=== PATIENT | female | born 1945 | race Caucasian/White ===

== ENCOUNTER 2024-03-21 13:52 | Emergency (ER) | payer OTHER ==
[2024-03-21 13:59] VITALS: BP 124/72; PULSE 73; RESP 18; TEMP 98.2; BMI 29.2
[2024-03-21] MEDS: ONDANSETRON 4 MG/2 ML VIAL IVPUSH ONE (14:09)
[2024-03-21] MEDS: SODIUM CHLORIDE 0.9% 500 ML INFUS.BAG IV ONE (14:09)
[2024-03-21] MEDS: MECLIZINE HCL 25 MG TABLET (FP) PO ONE (14:21)
[2024-03-21 14:56] LABS: HEMATOCRIT 33.1 % (32.4-45.2); HEMOGLOBIN 10.6 G/dL (10.7-15.3); MCH 27.4 pg (25.7-33.7); MCHC 31.9 g/dl (32.0-36.0); MEAN CELL VOLUME 85.9 fl (80-96); MEAN PLT VOLUME 9.9 fl (7.5-11.1); PLATELET COUNT 252.4 10^3/uL (134-434); RBC 3.85 10^6/uL (3.60-5.2); RDW 17.6 % (11.6-15.6); WHITE BLOOD COUNT 8.6 10^3/uL (4.0-10.8)
[2024-03-21 14:59] LABS: PLATELET ESTIMATE ADEQUATE
[2024-03-21 15:05] LABS: ALBUMIN 4.5 g/dl (3.4-5.0); CREATININE 0.9 mg/dl (0.6-1.3); POTASSIUM 3.4 mmol/L (3.5-5.1); TOT PROT 7.4 g/dl (6.4-8.2)
== END 2024-03-21 16:31 | disposition home or self-care (01) ==
LOC: FER 13:52
PROC: 3E033GC Introduction of Other Therapeutic Substance into Peripheral Vein, Percutaneous Approach (ICD-10-PCS; principal; 2024-03-21)
DX: R42 Dizziness and giddiness (principal)
CPT/HCPCS: 36415; 70450-TC; 80053; 85027; 99284-25

== ENCOUNTER 2024-10-14 17:48 | Observation (INO) | payer OTHER ==
[2024-10-14 18:28] LABS: ABSOLUTE IMMATURE GRANULOCYTES 0.01 x10^3/uL (0.0-0.031); BASOPHILS # 0.02 x10^3/uL (0.01-0.08); EOSINOPHIL % 1.2 % (0.7-5.8); EOSINOPHILS # 0.07 x10^3/uL (0.04-0.36); MCHC 31.5 g/dl (32.2-35.5); MEAN CELL VOLUME 90.6 fl (79.4-94.8); MEAN PLT VOLUME 10.5 fl (9.4-12.3); MONOCYTE # 0.33 x10^3/uL (0.24-0.86); MONOCYTE % 5.5 % (4.7-12.5); RDW 16.9 % (12.4-16.6)
[2024-10-14] MEDS: SODIUM CHLORIDE 0.9% 500 ML INFUS.BAG IV ONE (18:32)
[2024-10-14 18:43] LABS: ALK PHOS 81.0 U/L (45-117); CO2 30.0 mmol/L (21-32); CREATININE 1.0 mg/dl (0.6-1.3); GLUCOSE,RANDOM 115.0 mg/dl (74-106); SGOT/AST 16.0 U/L (15-37); SGPT/ALT 10.0 U/L (7-52); TOT PROT 6.9 g/dl (6.4-8.2)
[2024-10-14] MEDS ORDERED: LORazepam 2 MG/ML SDV VIAL ONE (19:33)
[2024-10-14] MEDS ORDERED: ONDANSETRON 4 MG/2 ML VIAL ONE (19:33)
[2024-10-14] MEDS: ONDANSETRON 4 MG/2 ML VIAL IVPB ONE (19:40)
[2024-10-14] MEDS ORDERED: DOCUSATE SODIUM 100 MG CAPSULE (FP) PO PRN (21:32)
[2024-10-15] MEDS ORDERED: ONDANSETRON 4 MG/2 ML VIAL IVPUSH PRN (02:00)
[2024-10-15 07:54] LABS: ABSOLUTE IMMATURE GRANULOCYTES 0.02 x10^3/uL (0.0-0.031); BASOPHILS # 0.02 x10^3/uL (0.01-0.08); EOSINOPHIL % 1.9 % (0.7-5.8); EOSINOPHILS # 0.10 x10^3/uL (0.04-0.36); MCHC 30.7 g/dl (32.2-35.5); MEAN CELL VOLUME 91.0 fl (79.4-94.8); MEAN PLT VOLUME 10.5 fl (9.4-12.3); MONOCYTE # 0.30 x10^3/uL (0.24-0.86); MONOCYTE % 5.7 % (4.7-12.5); RDW 17.1 % (12.4-16.6)
[2024-10-15 08:43] LABS: CO2 30.0 mmol/L (21-32); CREATININE 1.2 mg/dl (0.6-1.3); GLUCOSE,RANDOM 118.0 mg/dl (74-106)
[2024-10-15] MEDS ORDERED: MECLIZINE HCL 25 MG TABLET (FP) PO PRN (09:51)
[2024-10-15] MEDS: SODIUM CHLORIDE 0.9% 250 ML INFUS.BAG IV ONE (13:49)
[2024-10-15 15:32] VITALS: BMI 26.5
[2024-10-16] MEDS: LEVOTHYROXINE NA 88 MCG TABLET (FP) PO SCH (07:49)
[2024-10-16 08:09] LABS: ABSOLUTE IMMATURE GRANULOCYTES 0.01 x10^3/uL (0.0-0.031); BASOPHILS # 0.02 x10^3/uL (0.01-0.08); EOSINOPHIL % 2.8 % (0.7-5.8); EOSINOPHILS # 0.13 x10^3/uL (0.04-0.36); MCHC 30.8 g/dl (32.2-35.5); MEAN CELL VOLUME 90.8 fl (79.4-94.8); MEAN PLT VOLUME 11.2 fl (9.4-12.3); MONOCYTE # 0.28 x10^3/uL (0.24-0.86); MONOCYTE % 6.0 % (4.7-12.5); RDW 16.8 % (12.4-16.6)
[2024-10-16 08:49] LABS: ALK PHOS 66.0 U/L (45-117); CO2 30.0 mmol/L (21-32); CREATININE 1.0 mg/dl (0.6-1.3); GLUCOSE,RANDOM 106.0 mg/dl (74-106); SGOT/AST 13.0 U/L (15-37); SGPT/ALT 9.0 U/L (7-52); TOT PROT 6.0 g/dl (6.4-8.2)
[2024-10-16 13:25] VITALS: BP 143/78; PULSE 75; RESP 16; TEMP 98.6
== END 2024-10-16 14:44 | disposition home or self-care (01) ==
LOC: FER 17:48 → FM/S 20:37
PROVIDERS: ADMIT Internal Medicine; ATTEND Internal Medicine
DX: R42 Dizziness and giddiness (principal)
CPT/HCPCS: 36415; 70450-TC; 80048; 80053; 82533; 83735; 84439; 84443; 84484; 85025; 87637-QW; 93005; 93306-TC; 97116-GP; 97162-GP; 99285-25; G0378